=== PATIENT | male | born 1965 | race African-American/Black ===

== ENCOUNTER 2023-11-02 20:54 | Emergency (ER) | payer BC, SELFPAY ==
[2023-11-02] MEDS ORDERED: Ketorolac Tromethamine 30 MG/ML VIAL ONE (21:17)
[2023-11-02] MEDS ORDERED: HYDROcodone/Acetaminophen 5/325 mg Tablet ONE (21:17)
== END 2023-11-02 21:39 | disposition home or self-care (01) ==
LOC: BURERS 20:54
DX: M54.12 Radiculopathy, cervical region (principal); I10 Essential (primary) hypertension
CPT/HCPCS: 96372; 99283; J1885